=== PATIENT | male | born 1955 | race Caucasian/White ===

== ENCOUNTER 2024-04-17 07:12 | Inpatient (IN) | payer OTHER, MEDICARE ==
[2024-04-17] VITALS (8 sets, daily range): BP systolic 109–126; BP diastolic 56–83; PULSE 62–80; RESP 17–20; TEMP 97.9–98.3; O2SAT 91–100
[~2024-04-17] VITALS: Ht 170.2 cm; Wt 72.0 kg
[2024-04-17 07:53] LABS: Eosinophils # (auto) 0.1 10 ^3/uL (0-0.8); Hemoglobin 12.1 g/dL (13.5-17.5); Lymphocytes # (auto) 0.8 10 ^3/uL (0.4-5.4); Mean Corpuscular Hgb Conc. 32.8 g/dL (32.0-36.0); Neutrophils # (auto) 5.6 10 ^3/uL (1.6-8.6)
[2024-04-17 07:55] LABS: Basophils # (auto) 0.1 10 ^3/uL (0-0.2); Basophils % (auto) 0.8 % (0.0-2.0); Eosinophils % (auto) 1.4 % (0.0-7.0); Hematocrit 36.9 % (41.0-53.0); Lymphocytes % (auto) 11.4 % (10.0-50.0); Mean Corpuscular Hemoglobin 24.8 pg (28.0-32.0); Mean Corpuscular Volume 75.5 fL (80.0-100.0); Monocytes # (auto) 0.5 10 ^3/uL (0-1.3); Monocytes % (auto) 6.8 % (0.0-12.0); Neutrophils % (auto) 79.6 % (37.0-80.0); Nucleated Red Blood Cells % 0.1 %; Red Blood Cells 4.89 10^6/uL (4.5-5.90); Red Cell Distribution Width 16.2 % (11.8-14.3)
[2024-04-17 08:10] LABS: Alanine Aminotransferase 74 U/L (7-40); Albumin 3.7 g/dL (3.2-4.8); Alkaline Phosphatase 605 U/L (46-116); Anion Gap 3 (5-15); Aspartate Aminotransferase 77 U/L (13-40); BUN/Creatinine Ratio 9.9 (10.0-20.0); Blood Urea Nitrogen 12 mg/dL (9-23); Calcium 8.9 mg/dL (8.5-10.1); Carbon Dioxide 23 mmol/L (20-30); Chloride 107 mmol/L (98-107); Glucose 113 mg/dL (74-106); Potassium 3.9 mmol/L (3.5-5.1); Sodium 133 mmol/L (136-145)
[2024-04-17 08:11] LABS: Bilirubin, Total 0.7 mg/dL (0.2-1.0); Total Protein 9.6 g/dL (5.7-8.2)
[2024-04-17] MEDS: methylPREDNISolone SOD SUCC 125 MG/2 ML VL IV ONE (08:43)
[2024-04-17] MEDS ORDERED: TAMS0.4C36 PO (11:08)
[2024-04-17] MEDS ORDERED: FERR325T20 PO (11:08)
[2024-04-17] MEDS ORDERED: BICT1TAB PO (11:08)
[2024-04-17] MEDS ORDERED: FIN5T PO (11:08)
[2024-04-17] MEDS ORDERED: ONDANSETRON HCL 4 MG/2 ML VIAL IV PRN (11:15)
[2024-04-17] MEDS ORDERED: DOCUSATE SOD 100 MG CAP PO PRN (11:15)
[2024-04-17] MEDS ORDERED: MORPHINE SULFATE INJ 2 MG/ml SYRG IV PRN (11:15)
[2024-04-17] MEDS: ALBUTEROL SULF 2.5 MG/0.5ML(0.5%) NEB SOLN ONE (11:27)
[2024-04-17] MEDS: IPRATROPIUM BROM 0.5 MG/2.5ML INH SOL ONE (11:27)
[2024-04-17] MEDS ORDERED: BICTEGRAVIR EMTRICITABINE TENOFOVIR PO SCH (12:00)
[2024-04-17] MEDS: BICTEGRAVIR EMTRICITABINE TENOFOVIR PO SCH (18:43)
[2024-04-17] MEDS: TAMSULOSIN HYDROCHLORIDE 0.4 MG CAP PO SCH (18:43)
[2024-04-17] MEDS: ALBUTEROL SULF 2.5 MG/0.5ML(0.5%) NEB SOLN NEB SCH (19:54)
[2024-04-17] MEDS: IPRATROPIUM BROM 0.5 MG/2.5ML INH SOL NEB SCH (19:54)
[2024-04-17] MEDS: guaiFENesin 200 MG/10 ML UD PO PRN (21:46)
[2024-04-18] VITALS (10 sets, daily range): BP systolic 106–126; BP diastolic 61–67; PULSE 60–78; RESP 16–20; TEMP 97.7–98.3; O2SAT 93–100
[2024-04-18 05:56] LABS: Basophils # (auto) 0 10 ^3/uL (0-0.2); Basophils % (auto) 0.2 % (0.0-2.0); Eosinophils # (auto) 0 10 ^3/uL (0-0.8); Eosinophils % (auto) 0.1 % (0.0-7.0); Lymphocytes # (auto) 0.7 10 ^3/uL (0.4-5.4); Mean Corpuscular Hgb Conc. 32.9 g/dL (32.0-36.0); Monocytes # (auto) 0.5 10 ^3/uL (0-1.3); Neutrophils # (auto) 4.8 10 ^3/uL (1.6-8.6)
[2024-04-18 06:00] LABS: Hematocrit 32.7 % (41.0-53.0); Hemoglobin 10.7 g/dL (13.5-17.5); Lymphocytes % (auto) 11.5 % (10.0-50.0); Mean Corpuscular Hemoglobin 25.2 pg (28.0-32.0); Mean Corpuscular Volume 76.8 fL (80.0-100.0); Monocytes % (auto) 8.7 % (0.0-12.0); Neutrophils % (auto) 79.5 % (37.0-80.0); Red Blood Cells 4.25 10^6/uL (4.5-5.90); Red Cell Distribution Width 16.1 % (11.8-14.3)
[2024-04-18 06:25] LABS: Alanine Aminotransferase 54 U/L (7-40); Albumin 3.3 g/dL (3.2-4.8); Alkaline Phosphatase 482 U/L (46-116); Anion Gap 4 (5-15); Aspartate Aminotransferase 38 U/L (13-40); BUN/Creatinine Ratio 16.9 (10.0-20.0); Bilirubin, Total 0.5 mg/dL (0.2-1.0); Blood Urea Nitrogen 21 mg/dL (9-23); Calcium 8.8 mg/dL (8.5-10.1); Carbon Dioxide 22 mmol/L (20-30); Chloride 107 mmol/L (98-107); Glucose 137 mg/dL (74-106); Potassium 4.4 mmol/L (3.5-5.1); Sodium 133 mmol/L (136-145); Total Protein 8.7 g/dL (5.7-8.2)
[2024-04-18] MEDS: levoFLOXacin 750MG 150 ML IV SCH (09:51)
[2024-04-18] MEDS: FINASTERIDE 5 MG TAB PO SCH (09:51)
[2024-04-18] MEDS: FERROUS SULFATE 325mg EC TAB PO SCH (09:51)
[2024-04-18] MEDS: methylPREDNISolone SOD SUCC 40 MG/ML VL IV SCH (09:52)
[2024-04-18 10:57] LABS: Magnesium 2.3 mg/dL (1.6-2.6)
[2024-04-18 11:07] LABS: CRP High Sensitivity 2.02 mg/dL (<1.0)
[2024-04-18 12:27] LABS: Amphetamine Screen, Urine Neg (NEGATIVE); Barbiturate Scree,Urine Neg (NEGATIVE); Benzodiazephine Screen, Urine Neg (NEGATIVE); Cannabinoid Screen, Urine Neg (NEGATIVE); Cocaine Screen, Urine Neg (NEGATIVE); Opiate Scree,Urine Neg (NEGATIVE); Phencyclidine Screen, Urine Neg (NEGATIVE)
[2024-04-18 12:27] LABS: Erythrocyte Sedimentation Rate 86 mm/hr (0-20)
[2024-04-18 12:29] LABS: Free T4 (Free Thyroxine) 1.98 ng/dL (0.89-1.76)
[2024-04-18 12:30] LABS: Urine Bacteria FEW /hpf (None Seen); Urine Blood Negative /uL (Negative); Urine Clarity Clear (Clear); Urine Color Yellow (Yellow); Urine Hyaline Cast FEW /lpf (0 - 2); Urine Mucus FEW (None Seen); Urine Protein, UAD TRACE (Negative); Urine Specific Gravity 1.023 (1.001-1.035); Urine Urobilinogen Normal (Negative); Urine WBC 2 /hpf (0 - 3); Urine pH 5.5 (5.0-9.0)
[2024-04-18 12:30] LABS: Free T3 2.5 pg/mL (2.3-4.2)
[2024-04-18 12:48] LABS: COVID19 ANTIGEN SOFIA FIA NEGATIVE (NEGATIVE)
[2024-04-18 12:52] LABS: Rapid Influenza A Negative (Negative); Rapid Influenza B Negative (Negative)
[2024-04-18] MEDS ORDERED: GUA200LQ PO (16:33)
[2024-04-18] MEDS ORDERED: AZIT-185 PO (16:33)
== END 2024-04-18 18:00 | disposition home or self-care (01) | DRG 177 ==
LOC: ER 07:12 → OVERFLOW 11:07 → CENTRAL 15:05
PROVIDERS: ADMIT Internal Medicine Pulmonary Disease; ATTEND Emergency Medicine
DX: J15.69 Pneumonia due to other Gram-negative bacteria (principal); J96.01 Acute respiratory failure with hypoxia; J15.9 Unspecified bacterial pneumonia; N40.0 Benign prostatic hyperplasia without lower urinary tract symptoms; D64.9 Anemia, unspecified; R74.01 Elevation of levels of liver transaminase levels; Z20.822 Contact with and (suspected) exposure to COVID-19; I10 Essential (primary) hypertension; Z90.49 Acquired absence of other specified parts of digestive tract
CPT/HCPCS: 36415; 71045; 71250; 76705; 80053; 80061; 80307; 81001; 83735; 84439; 84443; 84481; 84484; 85025; 85652; 86141; 87081; 87426; 87804; 93005; 93306; 94640; G0378; J1956